=== PATIENT | female | born 1980 | race Caucasian/White ===

== ENCOUNTER 2021-10-29 08:39 | Emergency (ER) | payer OTHER ==
[~2021-10-29] VITALS: Ht 165.1 cm; Wt 107.0 kg
[2021-10-29] MEDS ORDERED: KETOROLAC 30MG/ML VIAL IV STA (09:15)
[2021-10-29] MEDS ORDERED: SODIUM CHLORIDE 0.9% 1,000 ML IV ONE (09:15)
[2021-10-29] MEDS ORDERED: ACETAMINOPHEN 325MG TABLET PO ONE (09:30)
[2021-10-29] MEDS ORDERED: BENAZEPRIL 10MG TABLET PO ONE (09:30)
[2021-10-29 09:36] LABS: BASOPHILS % 0.4 % (0.0-2.0); EOSINOPHILS % 0.9 % (0.0-5.0); HEMATOCRIT. 38.9 % (36.0-48.0); HEMOGLOBIN. 13.5 g/dL (12.0-16.0); LYMPHOCYTES % 22.8 % (20.0-50.0); MEAN CORPUSCULAR HEMOGLOBIN 27.5 pg (28.0-32.0); MEAN CORPUSCULAR VOLUME 79.2 fL (81.0-99.0); MEAN PLATELET VOLUME 10.7 fl (7.4-10.4); MONOCYTES % 8.2 % (2.0-8.0); NEUTROPHILS % 67.7 % (40.0-76.0); PLATELET 209 x1000/uL (130-400); RED BLOOD CELL COUNT 4.91 mill/uL (4.2-5.4); RED CELL DISTRIBUTION WIDTH 14.5 % (11.6-14.6)
[2021-10-29 09:39] LABS: CLARITY URINE CLEAR (CLEAR); COLOR URINE YELLOW (YELLOW); KETONES URINE NEGATIVE (NEGATIVE); LEUKOCYTE ESTERASE URINE TRACE (NEGATIVE); NITRITE URINE NEGATIVE (NEGATIVE); OCCULT BLOOD URINE 1+ (NEGATIVE); PROTEIN URINE NEGATIVE (NEGATIVE); SPECIFIC GRAVITY URINE 1.013 (1.005-1.030); UROBILINOGEN URINE 0.2 E.U./dL (0.2-1.0)
[2021-10-29 09:44] LABS: HCG SCREEN NEGATIVE
[2021-10-29 09:46] LABS: CHLORIDE 109 mEq/L (98-107)
[2021-10-29] MEDS ORDERED: CIPR-263 MT (12:00)
[2021-10-29 12:25] VITALS: BP 165/86
== END 2021-10-29 12:22 | disposition home or self-care (01) ==
LOC: ER 08:39
DX: N13.2 Hydronephrosis with renal and ureteral calculous obstruction (principal); N39.0 Urinary tract infection, site not specified; I10 Essential (primary) hypertension
CPT/HCPCS: 36415; 74176; 80053; 81003; 83605; 83690; 84484; 84703; 85025; 93005; 96360; 96361; 99285; J7030

== ENCOUNTER 2024-12-15 19:10 | Emergency (ER) | payer OTHER ==
[~2024-12-15] VITALS: Ht 157.5 cm; Wt 105.6 kg
[~2024-12-15 19:10] MED LIST: CIPR-263 MT
[2024-12-15 19:26] VITALS: O2SAT 99
[2024-12-15 21:31] LABS: POTASSIUM 3.8 mEq/L (3.5-5.1)
[2024-12-15 21:33] LABS: CALCIUM 8.9 mg/dL (8.7-10.4)
[2024-12-15 21:34] LABS: BASOPHILS % 0.3 % (0.0-2.0); EOSINOPHILS % 0.5 % (0.0-5.0); HEMOGLOBIN. 8.2 g/dL (12.0-16.0); LYMPHOCYTES % 10.1 % (20.0-50.0); MEAN CORPUSCULAR HEMOGLOBIN 19.8 pg (28.0-32.0); MEAN CORPUSCULAR HGB CONC 30.5 g/dL (31.0-37.0); MEAN CORPUSCULAR VOLUME 65.2 fL (81.0-99.0); MEAN PLATELET VOLUME 9.9 fl (7.4-10.4); MONOCYTES % 6.2 % (2.0-8.0); NEUTROPHILS % 82.9 % (40.0-76.0); PLATELET 251 x1000/uL (130-400); RED BLOOD CELL COUNT 4.15 mill/uL (4.2-5.4); RED CELL DISTRIBUTION WIDTH 16.7 % (11.6-14.6)
[2024-12-15 21:37] LABS: CREATININE 1.2 mg/dL (0.6-1.0)
[2024-12-15 21:39] LABS: ADD RBC MORPHOLOGY YES; DIFFERENTIAL COMMENT 1
[2024-12-15 23:29] LABS: HYPOCHROMASIA 2+; MICROCYTOSIS 3+; PLATELET ESTIMATE NORMAL
[2024-12-15 23:30] LABS: ANISOCYTOSIS 1+
[2024-12-16] MEDS: ONDANSETRON 4MG/5ML UDC PO ONE (00:30)
[2024-12-16] MEDS: KETOROLAC 15MG/ML VIAL IM ONE (01:05)
[2024-12-16] MEDS: IBUPROFEN 800MG TABLET PO ONE (01:26)
[2024-12-16] MEDS ORDERED: HYDR-4001 MT (05:08)
[2024-12-16] MEDS ORDERED: TAMS-54 MT (05:08)
[2024-12-16 05:16] LABS: CLARITY URINE TURBID (CLEAR); COLOR URINE YELLOW (YELLOW); GLUCOSE URINE NEGATIVE (NEGATIVE); KETONES URINE NEGATIVE (NEGATIVE); LEUKOCYTE ESTERASE URINE 1+ (NEGATIVE); NITRITE URINE NEGATIVE (NEGATIVE); OCCULT BLOOD URINE 3+ (NEGATIVE); PROTEIN URINE 1+ (NEGATIVE); SPECIFIC GRAVITY URINE 1.028 (1.005-1.030)
[2024-12-16] MEDS ORDERED: CEFP100T8 MT (05:25)
[2024-12-16 05:27] LABS: SQUAMOUS EPITHELIAL CELL URINE 2+ /lpf (RARE/1+)
[2024-12-16 05:28] LABS: AMORPHOUS SEDIMENT URINE 4+ /lpf; BACTERIA URINE 1+
[2024-12-16 05:39] VITALS: BP 161/91; PULSE 76; RESP 20; TEMP 36.8; O2SAT 99
[2024-12-16 05:45] LABS: HCG SCREEN NEGATIVE
[2024-12-16 05:46] LABS: ALANINE AMINOTRANSFERASE 15 IU/L (10-49); ALBUMIN 4.5 g/dL (3.2-4.8); ASPARTATE AMINOTRANSFERASE 19 IU/L (<34); BILIRUBIN DIRECT 0.2 mg/dL (<=3.0); BILIRUBIN TOTAL 0.8 mg/dL (0.1-1.0); PROTEIN TOTAL 7.2 g/dL (6.0-8.3)
== END 2024-12-16 05:45 | disposition home or self-care (01) ==
LOC: ER 19:10
DX: N20.0 Calculus of kidney (principal); I10 Essential (primary) hypertension; Z79.899 Other long term (current) drug therapy
CPT/HCPCS: 99284; 76700; 80076; 80048; 84703; 83690; 85025; 36415; 74176; 81003; J1885